=== PATIENT | female | born 1950 | race Asian ===

== ENCOUNTER 2019-12-28 17:03 | Emergency (ER) | payer OTHER ==
[~2019-12-28] VITALS: Ht 157.5 cm; Wt 68.9 kg
[2019-12-28 20:31] VITALS: BP 134/59
== END 2019-12-28 21:31 | disposition home or self-care (01) ==
LOC: ER 17:03
DX: M71.21 Synovial cyst of popliteal space [Baker], right knee (principal)
CPT/HCPCS: 93971